=== PATIENT | female | born 1995 | race Hispanic/Latino ===

== ENCOUNTER 2020-10-27 11:31 | Outpatient (CLI) | payer BC ==
[2020-10-27 20:44] LABS: SARS-CoV-2 PCR by NAA Not Detected (NotDetected)
== END 2020-10-27 11:32 | disposition home or self-care (01) ==
LOC: CSHLAB 11:31
PROVIDERS: ATTEND Obstetrics & Gynecology
DX: Z20.822 Contact with and (suspected) exposure to COVID-19 (principal)
CPT/HCPCS: 87635; U0003; U0005

== ENCOUNTER 2020-10-30 04:03 | Inpatient (IN) | payer BC ==
[2020-10-30 04:30] VITALS: BMI 35.7
[2020-10-30 05:18] LABS: Amnisure Test RUPTURE DETECTED (No Rupture)
[2020-10-30] MEDS ORDERED: Ibuprofen 800 MG TAB PO PRN (05:45)
[2020-10-30] MEDS ORDERED: Acetaminophen 500 MG TAB PO PRN (05:45)
[2020-10-30] MEDS ORDERED: Misoprostol 200 MCG TAB PR PRN (05:45)
[2020-10-30] MEDS ORDERED: Lidocaine 1% (PF) 30 ML VIAL SC PRN (05:45)
[2020-10-30] MEDS ORDERED: hydrALAZINE 20 MG/ML VIAL SLOW IVP PRN ×2 (05:45→23:26)
[2020-10-30] MEDS ORDERED: Ondansetron PF 4 MG/2 ML Vial IVP PRN ×3 (05:45→20:03)
[2020-10-30] MEDS ORDERED: Promethazine HCl 25 MG/ML VIAL IM PRN ×3 (05:45→20:03)
[2020-10-30] MEDS ORDERED: Penicillin G Potassium 5 MILL.UNITS VIAL ONE (07:07)
[2020-10-30] MEDS ORDERED: NS w/ Oxytocin 30 units 500 ML IV PRN (07:08)
[2020-10-30] MEDS ORDERED: Penicillin G Potassium 5 MILL.UNITS in Sodium Chloride 0.9% 100 ML IVPB SCH (07:15)
[2020-10-30] MEDS ORDERED: NS w/ Oxytocin 30 units 500 ML IVPB SCH (07:15)
[2020-10-30] MEDS: Butorphanol Tartrate 1 MG/ML VIAL SLOW IVP PRN ×2 (07:20→10:06)
[2020-10-30] MEDS: Lactated Ringer's 1,000 ML IV SCH ×3 (07:26→23:26)
[2020-10-30 07:30] LABS: Hemoglobin 11.2 g/dL (12.0-15.5); Mean Corpuscular HGB CONC 32.9 g/dL (32.0-36.0); Mean Corpuscular Hemoglobin 29.8 pg (27.0-33.0); Mean Corpuscular Volume 90.4 fl (81.6-98.3); Mean Platelet Volume 11.5 fl (7.4-10.4); Platelet Count 191 10x3/uL (150-450); RBC Distribution Width 14.2 % (11.5-14.5); Red Blood Cell (RBC) Count 3.76 10x6/uL (3.90-5.03); White Blood Cell (WBC) Count 6.9 10x3/uL (3.5-10.5)
[2020-10-30] MEDS ORDERED: Bupivacaine 0.25% HCL 30 ML VIAL ONE (08:00)
[2020-10-30 08:12] LABS: Syphilis Antibody Nonreactive (Nonreactive); Syphilis Antibody Index 0.03 S/CO (<1.00 Non-Reactive)
[2020-10-30 08:13] LABS: Hep B Surf Ag Non-Reactive S/CO (NonReactive)
[2020-10-30 10:14] LABS: HBSAg Index 0.15 S/CO (0-0.99)
[2020-10-30] MEDS ORDERED: Fentanyl 4 mcg/Bup 0.1% Cadd 100 ML ONE (10:38)
[2020-10-30] MEDS ORDERED: Fentanyl 4 mcg/Bupivacaine 0.1% Cassette 100 ML EPIDURAL SCH (11:15)
[2020-10-30] MEDS ORDERED: Communication Order-Pharmacy FS SCH ×2 (11:15→20:15)
[2020-10-30] MEDS ORDERED: ePHEDrine 50 MG/ML VIAL SLOW IVP PRN (11:15)
[2020-10-30] MEDS ORDERED: diphenhydrAMINE 50 MG/ML VIAL IVP PRN ×2 (11:15→20:03)
[2020-10-30] MEDS ORDERED: Naloxone HCl 0.4 mg/ml Vial IVP PRN ×4 (11:15→20:03)
[2020-10-30] MEDS ORDERED: Eucerin (Mineral Oil/Petrolatum,White) 30 gm Jar TOP PRN (11:15)
[2020-10-30] MEDS ORDERED: Lactated Ringer's 500 ML IV PRN (11:15)
[2020-10-30] MEDS ORDERED: Acetaminophen 325 MG TAB PO PRN ×2 (11:15→23:26)
[2020-10-30] MEDS: Penicillin G 2.5 MILL.units 2.5 MILL.UNITS in Premix Bag 1 BAG IVPB SCH ×3 (11:28→23:25)
[2020-10-30] MEDS ORDERED: Ondansetron PF 4 MG/2 ML Vial ONE (19:10)
[2020-10-30] MEDS ORDERED: Morphine PF 10 MG/10 ML VIAL ONE (19:10)
[2020-10-30] MEDS ORDERED: Oxytocin 10 UNITS/ML VIAL ONE (19:11)
[2020-10-30] MEDS ORDERED: Azithromycin 500 MG VIAL ONE (19:14)
[2020-10-30] MEDS ORDERED: Ketorolac Tromethamine 15 MG/ML VIAL ONE (19:56)
[2020-10-30] MEDS ORDERED: L&D-Morphine 4 MG/ML VIAL SLOW IVP PRN (20:03)
[2020-10-30] MEDS ORDERED: HYDROmorphone 2 MG/ML VIAL SLOW IVP PRN (20:03)
[2020-10-30] MEDS ORDERED: Naloxone HCl 0.4 mg/ml Vial IV PRN (20:03)
[2020-10-30] MEDS ORDERED: Ketorolac Tromethamine 30 MG/ML VIAL IVP PRN (20:03)
[2020-10-30] MEDS ORDERED: Meperidine HCl/PF 25 MG/ML VIAL SLOW IVP PRN (20:03)
[2020-10-30] MEDS ORDERED: Hydrocerin (Eucerin) Cream 120 gm Jar TOP PRN (20:03)
[2020-10-30] MEDS ORDERED: Ondansetron HCl/PF 4 MG/2 ML Vial IVP PRN (20:03)
[2020-10-30] MEDS ORDERED: Promethazine HCl 25 MG SUPP PR PRN (20:03)
[2020-10-30] MEDS ORDERED: Ketorolac Tromethamine 30 MG/ML VIAL IVP SCH (20:15)
[2020-10-30] MEDS ORDERED: Bisacodyl 10 MG SUPP PR PRN (23:26)
[2020-10-30] MEDS ORDERED: Zolpidem Tartrate 5 MG TAB PO PRN (23:26)
[2020-10-30] MEDS ORDERED: Lanolin Ointment 7 GM TUBE TOP PRN (23:26)
[2020-10-30] MEDS ORDERED: diphenhydrAMINE 25 MG CAP PO PRN (23:26)
[2020-10-30] MEDS ORDERED: HYDROcodone/Acetaminophen 5/325 mg Tablet PO PRN ×2 (23:26)
[2020-10-30] MEDS ORDERED: Adacel (T-DAP) 0.5 ML SYRINGE IM ONE (23:26)
[2020-10-30] MEDS ORDERED: Simethicone Chewable 80 MG TAB PO PRN (23:26)
[2020-10-30] MEDS: Ibuprofen 800 MG TAB PO SCH (23:36)
[2020-10-30] MEDS ORDERED: Docusate Calcium (SURFAK) 240 MG CAP PO SCH (23:45)
[2020-10-30] MEDS ORDERED: Boostrix 0.5 ML (Tdap) VIAL IM ONE (23:45)
[2020-10-31 06:33] LABS: Hemoglobin 11.1 g/dL (12.0-15.5); Mean Corpuscular HGB CONC 32.8 g/dL (32.0-36.0); Mean Corpuscular Hemoglobin 29.9 pg (27.0-33.0); Mean Corpuscular Volume 91.1 fl (81.6-98.3); Mean Platelet Volume 11.8 fl (7.4-10.4); Platelet Count 205 10x3/uL (150-450); RBC Distribution Width 14.6 % (11.5-14.5); Red Blood Cell (RBC) Count 3.71 10x6/uL (3.90-5.03); White Blood Cell (WBC) Count 13.6 10x3/uL (3.5-10.5)
[2020-10-31] MEDS: Docusate Calcium (SURFAK) 240 MG CAP PO SCH (09:07)
[2020-10-31] MEDS: Ibuprofen 800 MG TAB PO SCH (17:23)
[2020-11-01] MEDS: Docusate Calcium (SURFAK) 240 MG CAP PO SCH ×3 (00:29→21:29)
[2020-11-01] MEDS: Ibuprofen 800 MG TAB PO SCH ×4 (00:29→23:47)
[2020-11-01 21:34] VITALS: BP 125/84
[2020-11-02] MEDS: Ibuprofen 800 MG TAB PO SCH (06:46)
[2020-11-02 08:01] VITALS: TEMP 98.1
[2020-11-02] MEDS: Docusate Calcium (SURFAK) 240 MG CAP PO SCH (08:55)
== END 2020-11-02 14:10 | disposition home or self-care (01) | DRG 788 ==
LOC: CSHLD/OP 04:03 → CSHLD 05:46 → CSHPP 23:10
PROVIDERS: ADMIT Obstetrics & Gynecology; ATTEND Obstetrics & Gynecology
PROC: 0HQ9XZZ Repair Perineum Skin, External Approach (ICD-10-PCS; 2020-10-30)
PROC: 10D00Z1 Extraction of Products of Conception, Low, Open Approach (ICD-10-PCS; principal; 2020-10-31)
DX: O99.824 Streptococcus B carrier state complicating childbirth (principal); Z20.822 Contact with and (suspected) exposure to COVID-19; O32.4XX0 Maternal care for high head at term, not applicable or unspecified; Z3A.38 38 weeks gestation of pregnancy; Z37.0 Single live birth; O70.1 Second degree perineal laceration during delivery
CPT/HCPCS: 36415; 51702; 84112; 85027; 86780; 86850; 86900; 86901; 87340; 87635; 99285; J0595; J1885; J2274; J2405; J2540; J2590; J3490; S0020; U0003; U0005